=== PATIENT | male | born 1990 | race Caucasian/White ===

== ENCOUNTER 2023-10-02 20:25 | Emergency (ER) | payer SELFPAY ==
[~2023-10-02] VITALS: Ht 167.6 cm; Wt 91.0 kg
[~2023-10-02 20:25] MED LIST: ASPI-1160 PO; LANS30CA55 PO; METO-539 PO
[2023-10-02 20:42] VITALS: BP 127/82; PULSE 77; RESP 18; TEMP 98; O2SAT 100
[2023-10-02] MEDS ORDERED: LANS30CA55 MT (21:09)
[2023-10-02] MEDS ORDERED: METO-539 PO (21:09)
[2023-10-02] MEDS ORDERED: ASPI-1160 PO (21:09)
== END 2023-10-02 22:40 | disposition home or self-care (01) ==
LOC: ER 20:25
DX: Z76.0 Encounter for issue of repeat prescription (principal); I10 Essential (primary) hypertension
CPT/HCPCS: 99283

== ENCOUNTER 2025-02-10 15:52 | Emergency (ER) | payer SELFPAY ==
[~2025-02-10] VITALS: Ht 170.2 cm; Wt 91.0 kg
[~2025-02-10 15:52] MED LIST changes: +LANS30CA55 MT
[2025-02-10 16:05] VITALS: O2SAT 99
[2025-02-10 16:35] VITALS: BP 125/78; PULSE 76; RESP 18; TEMP 36.8; O2SAT 100
== END 2025-02-10 16:40 | disposition home or self-care (01) ==
LOC: ER 15:52
DX: I10 Essential (primary) hypertension (principal); Z76.0 Encounter for issue of repeat prescription; Z79.899 Other long term (current) drug therapy
CPT/HCPCS: 99281; 99282